=== PATIENT | female | born 1940 | race Caucasian/White ===

== ENCOUNTER 2016-08-06 10:00 | Inpatient (IN) | payer MEDICARE, OTHER ==
[2016-08-15] MEDS ORDERED: ceFAZolin 1 GM in NORMAL SALINE MINI-BAG+ 100 ML IV ONE (07:39)
[2016-08-15] MEDS ORDERED: VANCOMYCIN HCL 1,000 MG in NORMAL SALINE 250 ML IV SCH (10:00)
[2016-08-16] MEDS ORDERED: MIDAZOLAM HCL 2 MG/2 ML SYR IV ONE (08:25)
[2016-08-16] MEDS ORDERED: LIDOCAINE HCL 1% 20 ML VIAL SUBCUT ONE ×2 (08:25→10:31)
[2016-08-16] MEDS ORDERED: BACITRACIN 50,000 UNITS VIAL IM ONE (08:29)
[2016-08-16] MEDS ORDERED: BUPIVACAINE/EPI 0.25% 1 VIAL VIAL ONE (08:29)
[2016-08-16] MEDS ORDERED: NORMAL SALINE FLUSH 10 ML ONE (08:29)
[2016-08-16] MEDS ORDERED: BACITRACIN 14 APP/14 GM TUBE TOPICAL ONE (08:30)
[2016-08-16] MEDS ORDERED: FAMOTIDINE IN SALINE, ISO-OSM 20 MG/50 ML PIGGYBACK IV SCH ×2 (08:30→10:31)
[2016-08-16] MEDS ORDERED: ROPIVACAINE HCL 0.5% 30 ML ONE (08:39)
[2016-08-16] MEDS ORDERED: FAMOTIDINE IN SALINE, ISO-OSM 50 ML IV ONE (08:48)
[2016-08-16] MEDS ORDERED: MIDAZOLAM HCL 2 MG/2 ML VIAL ONE (08:49)
[2016-08-16] MEDS ORDERED: LACTATED RINGERS 1,000 ML IV SCH ×4 (09:00→11:00)
[2016-08-16] MEDS ORDERED: LIDOCAINE HCL 1% 20 ML VIAL ONE (09:20)
[2016-08-16] MEDS ORDERED: ONDANSETRON HCL 4 MG/2 ML VIAL ONE ×2 (09:20→12:27)
[2016-08-16] MEDS ORDERED: FENTANYL 100 MCG/2 ML VIAL ONE (09:20)
[2016-08-16] MEDS ORDERED: DEXAMETHASONE 4 MG/ML VIAL ONE (09:20)
[2016-08-16] MEDS ORDERED: SUCCINYLCHOLINE CHLORIDE 200 MG/10 ML VIAL ONE (09:21)
[2016-08-16] MEDS ORDERED: ROCURONIUM BROMIDE 50 MG/5 ML VIAL IV ONE (09:24)
[2016-08-16] MEDS ORDERED: PHENYLEPHRINE HCL 10,000 MCG/ML VIAL ONE (09:26)
[2016-08-16] MEDS ORDERED: NORMAL SALINE FLUSH 20 ML ONE (09:27)
[2016-08-16] MEDS ORDERED: EPHEDrine SULFATE 50 MG/ML VIAL ONE (09:27)
[2016-08-16] MEDS ORDERED: VANCOMYCIN HCL 1,000 MG in NORMAL SALINE 250 ML IV SCH ×2 (10:00→22:00)
[2016-08-16] MEDS ORDERED: SEVOFLURANE 250 ML BTL INHALATION ONE (10:12)
[2016-08-16] MEDS ORDERED: MORPHINE SULFATE 10 MG/ML SYR IV PRN ×2 (10:29→10:31)
[2016-08-16] MEDS ORDERED: ONDANSETRON HCL 4 MG/2 ML VIAL IV PRN ×2 (10:29→10:31)
[2016-08-16] MEDS ORDERED: HYDROmorphone HCL 1 MG/ML SYR IV PRN ×2 (10:29→10:31)
[2016-08-16] MEDS ORDERED: FENTANYL 100 MCG/2 ML VIAL IV PRN ×2 (10:29→10:31)
[2016-08-16] MEDS ORDERED: GLYCOPYRROLATE 0.2 MG/ML VIAL ONE (11:38)
[2016-08-16] MEDS ORDERED: NEOSTIGMINE METHYLSULFATE 10 MG/10 ML VIAL ONE (11:39)
[2016-08-16 12:10] VITALS: TEMP 97.2
[2016-08-16 12:46] VITALS: O2SAT 96
[2016-08-16 12:55] VITALS: BP 114/68; PULSE 65; RESP 11
[2016-08-16] MEDS ORDERED: ceFAZolin 1 GM/10 ML VIAL ONE (13:10)
--- NOTE | 2016-08-16 14:01 | OPERATIVE REPORT ---
DATE OF SURGERY: 08/16/16 SURGEON: Gee Dawn DO ANESTHESIA: General. PREOPERATIVE DIAGNOSIS: Left clavicle nonunion. POSTOPERATIVE DIAGNOSIS: Left clavicle nonunion. OPERATION PERFORMED: Left clavicle open reduction, internal fixation of nonunion. ESTIMATED BLOOD LOSS: Minimal. SPECIMENS REMOVED: Scar tissue. PROCEDURE NOTE: The patient was brought to the operating room suite and after administration of general anesthesia the left upper extremity was prepped and draped in a sterile fashion. The patient was well positioned on a beach chair apparatus with all bony prominences well padded including the head and eyes. The left upper extremity was prepped in sterile fashion. An incision was made over the level of the clavicle. Dissection was carried down bluntly and sharply to the bone. A portion of the periosteum was elevated for visualization and reduction purposes. The patient has significant amount of scar tissue and nonunion tissue on the ends of the fracture, which was displaced a couple of centimeters. All of the scar tissue and nonunion callous formation was removed with curets and rongeurs exposing the ends of the bones. The bone was subsequently reduced and held in place with a sharp bone reduction clamp. A Synthes 3.5 distal locking plate was positioned, and holes were predrilled and measured and appropriate screws were inserted both locking and non-locking screws. Fluoroscopic imaging was utilized for optimal placement of the plate and reduction of the fracture. Orthogonal views were obtained. Anatomic reduction was obtained. There was a small void at the fracture site which was filled with demineralized bone matrix. The incision at the operative site was copiously irrigated with bacitracin infused with normal saline. Prior to incision, the patient did receive 1 gram of Vancomycin IV. The incision was closed with a stepwise fashion utilizing #1 Vicryl, followed by 0 Vicryl, followed by 3-0 Vicryl, following by a running modified horizontal mattress suture, utilizing 3-0 nylon at the level of the skin. The incision was dressed with bacitracin ointment, Xeroform, 4x4s, ABD and Medipore tape. The patient's arm was positioned in a sling and was transferred to the operating room suite to the recovery room in stable condition. DORA
--- NOTE | 2016-08-18 13:55 | RADIOLOGY REPORT ---
Two limited views of the left clavicle from the C-Arm in the operating room are compared with prior films dated 06/24/2016. There has been interval open reduction and internal fixation of the clavicle fracture which is secured with a plate and multiple screws. No other abnormality is identified. IMPRESSION: Interval open reduction and internal fixation of the left clavicle fracture. [facility]
--- NOTE | 2016-08-20 14:07 | PREOPERATIVE H&P ---
History of Present Illness (Gee Dawn DO; 08/10/2016 4:18 PM) The patient is a 76 year old female. Patient presents for preop visit for her left clavicle nonunion of fracture open reduction internal fixation with possible allograft. 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 2. TSH has been suppressed twice, and is 0.06 today, so I decreased the patient's dose from 88mcg to 75mcg, and asked her to have a repeat TSH in about 12 weeks. 3. Patient is not feeling as well on her Levothyroxine, and had her dose lowered. TSH ordered in follow up. Weight is stable. 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 2. Due for follow up bone density in November, ordered for her today. 3.Bone density was completed today, and shows stability, with no bone loss since discontinuing Alendronate. Continue as is. Menopause (627.9) Hearing loss, unspecified (389.9) Injury of left clavicle, initial encounter (S49.92XA) Blood Transfusions 1965, 1984 Rheumatoid arthritis involving multiple sites with positive rheumatoid factor ( M05.79)1961 Hands, feet, arms, elbows knees. Sister had it. Sees Dr. Mohinder Fang, [facility]. Treated with Enbrel since . Feels well with this. Was on MTX, gold, and Tetracycline; never on prednisone ( walked out of several offices and told them she wouldn't take it). Replacement of both knees, right elbow, toes. 2. I prescribed some Tramadol to help with pain. I would like the patient to wait until all infections are clear before restarting the Enbrel. 3. Desirous of seeking surgical intervention for her immobile right wrist. Referred accordingly. 4. Seems to be doing well after her surgery, and is taking her Enbrel again. 5. Continue to do well in spite of multiple joint surgeries. She has had very good results from Enbrel. Closed fracture of part of humerus (812.20)2001 Fracture on the left after a fall. Macular degeneration, dry (H35.5190)2012 Patient has "subtle signs" of macular degeneration, and suffers from glare if out in the sun without sunglasses. She develops central scotoma in low light. Patient states her macular degeneration has not progressed. 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 Allergies (Gee Dawn DO; 08/10/2016 4:18 PM) No Known Drug Allergies Family History (Gee Dawn DO; 08/10/2016 4:18 PM) Father Father at 99, old age. Did have rheumatoid arthritis in the hands at age 85. Rheumatoid Arthritis sister with this. breast, breast, uterine, ovarian or colorectal cancer Brother 3 82, doing fine. 2017 - [place] Mother Mother at 84, fracture of hip, silent [place], CHF. Osteoporosis. Brother 1 Brother 90 with multiple issues. 2017 Osteoporosis (733.00) (M81.0) Mother Brother 2 83 with DM type II. Some dementia. Diabetes Mellitus Type II Brother Sister with complications (heart/lung) of RA at age 64. Social History (Gee Dawn DO; 08/10/2016 4:18 PM) Exercise Swims, was up to a mile and a half per week. Number of Children Biological 3 well 2016. 11 grandchildren. 1 great grandson. Son 56 Giant cell vasculitis, currently treated with Prednisone. 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 Marital status Tobacco Use Never smoker. Alcohol Use Moderate alcohol use. Scotch occasionally, one ounce. / History (Gee Dawn DO; 08/10/2016 4:18 PM) Pregnancies () 3 Delivery Mode Vaginal Deliveries (Parity) 3003 Past Surgical History (Gee Dawn DO; 08/10/2016 4:18 PM) Left elbow radial head resection Multiple small joint surgery Arthritis Feet have had metarsal resection bilaterally. Total Knee [id number] Bilateral. Reduction Of Fracture; [id number] Right Hip pinning Elbow [id number] Right Right Ulnar [id number]/10/2014 Dr. Forrest. Done to try to restore supination/ pronation movement of forearm and wrist. MOHS MICROGRAPHIC SURGERY OF HEAD (58095)01/2014 Right nasal area. Other Problems (Gee Dawn DO; 08/10/2016 4:18 PM) URI (upper respiratory infection) (J06.9) Physical Exam (Gee Dawn DO; 08/10/2016 4:31 PM) Physical examination of the left shoulder demonstrates positive tenderness to palpation over the distal clavicle. Normal sensation and adequate perfusion. Plain film x-rays demonstrate a nonunion of the distal clavicle fracture. 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 No interval changes. Signed Gee Dawn DO 08/16/16 MTDD
== END 2016-08-16 13:15 | disposition home or self-care (01) | DRG 566 ==
LOC: IN 08-16 07:32
PROVIDERS: ADMIT Orthopaedic Surgery; ATTEND Orthopaedic Surgery
DX: S42.032K Displaced fracture of lateral end of left clavicle, subsequent encounter for fracture with nonunion (principal); E55.9 Vitamin D deficiency, unspecified; D75.1 Secondary polycythemia; E03.9 Hypothyroidism, unspecified; J30.9 Allergic rhinitis, unspecified; E78.5 Hyperlipidemia, unspecified; H91.93 Unspecified hearing loss, bilateral; M05.79 Rheumatoid arthritis with rheumatoid factor of multiple sites without organ or systems involvement; H35.3190 Nonexudative age-related macular degeneration, unspecified eye, stage unspecified; Z85.828 Personal history of other malignant neoplasm of skin; Z79.899 Other long term (current) drug therapy
CPT/HCPCS: 76000; 85610; C1713; J0690; J2250; J2370; J2405; J2710; J2795; J3370; J7050